=== PATIENT | male | born 1985 | race African-American/Black ===

== ENCOUNTER 2021-01-02 08:09 | Emergency (ER) | payer SELFPAY ==
[~2021-01-02] VITALS: Ht 185.4 cm; Wt 112.0 kg
[2021-01-02] MEDS ORDERED: KETOROLAC 60MG/2ML VIAL IM ONE (09:15)
[2021-01-02] MEDS ORDERED: DIAZEPAM 5 MG TABLET PO ONE (09:15)
[2021-01-02] MEDS ORDERED: IBUP-2030 MT (10:13)
[2021-01-02] MEDS ORDERED: METH500T6 MT (10:13)
[2021-01-02 10:26] VITALS: BP 147/91
== END 2021-01-02 10:27 | disposition home or self-care (01) ==
LOC: ER 08:30
DX: R51.9 Headache, unspecified (principal); M54.2 Cervicalgia; M54.6 Pain in thoracic spine; M54.5 Low back pain; R03.0 Elevated blood-pressure reading, without diagnosis of hypertension; V49.49XA Driver injured in collision with other motor vehicles in traffic accident, initial encounter; Y93.89 Activity, other specified; Y92.488 Other paved roadways as the place of occurrence of the external cause
CPT/HCPCS: 70450; 72070; 72100; 96372; 99284; J1885

== ENCOUNTER 2022-04-28 21:04 | Emergency (ER) | payer MEDICAID ==
[~2022-04-28] VITALS: Ht 185.4 cm; Wt 112.1 kg
[~2022-04-28 21:04] MED LIST: IBUP-2030 MT; METH-773 MT
[2022-04-29] MEDS ORDERED: IBUPROFEN 600MG TABLET PO STA (07:52)
[2022-04-29 12:17] VITALS: BP 156/78
== END 2022-04-29 12:18 | disposition home or self-care (01) ==
LOC: ER 21:04
DX: J10.1 Influenza due to other identified influenza virus with other respiratory manifestations (principal); Z20.822 Contact with and (suspected) exposure to COVID-19
CPT/HCPCS: 71045; 87070; 87426; 87430; 87804; 93005; 99285